=== PATIENT | female | born 2000 | race Caucasian/White ===

== ENCOUNTER 2019-07-30 04:00 | Inpatient (IN) ==
[2019-07-30] MEDS ORDERED: Naloxone 0.4 MG/ML INJ IVP PRN (04:20)
[2019-07-30] MEDS ORDERED: Famotidine 20 MG/2 ML VIAL IVP PRN (04:20)
[2019-07-30] MEDS ORDERED: Ondansetron 4 MG/2 ML VIAL IVP PRN (04:20)
[2019-07-30] MEDS ORDERED: *HR* Nalbuphine 10 MG/ML AMPUL IVP PRN (04:20)
[2019-07-30] MEDS ORDERED: Lidocaine 1% 20 ML MDV ID PRN (04:20)
[2019-07-30] MEDS ORDERED: Metoclopramide 10 MG/2 ML VIAL IVP PRN (04:20)
[2019-07-30] MEDS ORDERED: Penicillin G Potassium 5,000,000 UNIT in 0.9 % Sodium Chloride Mini Bag 100 ML IVPB ONE (04:27)
[2019-07-30] MEDS ORDERED: miSOPROStol 25 MCG TABLET VG PRN (04:27)
[2019-07-30] MEDS ORDERED: Ringers Solution, Lactated 1,000 ML IVC SCH (04:30)
[2019-07-30] MEDS ORDERED: FLU Vac QV 19-20 (6Month+)/PF 0.5 ML SYRINGE IM ONE (04:44)
[2019-07-30 04:52] LABS: Basophils % 0.4 %; Eosinophils # 0.2 K/mcL (0.0-0.6); Hematocrit 35.4 % (35.3-44.9); Hemoglobin 11.3 g/dL (11.5-15.4); Immature Granulocytes % 0.2 % (0-4); Lymphocytes # 2.4 K/mcL (0.6-4.6); Lymphocytes % 27.9 %; Mean Corpuscular HGB Conc 31.9 g/dL (31.6-35.5); Mean Corpuscular Hemoglobin 26.5 pg (28.0-33.3); Mean Corpuscular Volume 83.1 fL (83.0-100.0); Mean Platelet Volume 11.8 fL (9.4-12.4); Monocytes # 0.5 K/mcL (0.0-1.3); Neutrophils # 5.4 K/mcL (1.6-8.9); Platelet Count 320 K/mcL (140-400); Red Blood Count 4.26 M/mcL (3.82-4.97); Red Cell Distribution Width 15.9 % (11.5-14.5); Segmented Neutrophils % 63.5 %; White Blood Count 8.4 K/mcL (4.3-11.1)
[2019-07-30 05:00] LABS: Amphetamine Screen,Urine Negative ng/mL (Cutoff=1000); Barbiturate Screen,Urine Negative ng/mL (Cutoff=200); Benzodiazepines Screen,Urine Negative ng/mL (Cutoff=200); Cannabinoid Screen,Urine Negative ng/mL (Cutoff = 50); Cocaine Screen,Urine Negative ng/mL (Cutoff= 300); Opiate Screen,Urine Negative ng/mL (Cutoff=300); Phencyclidine Screen,Urine Negative ng/mL (Cutoff=25)
--- NOTE | 2019-07-30 08:37 | Anesthesia Evaluation PreOp ---
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: Denies Any Significant HX Other Medical History: GERD (occasional heartburn with ) Anesthesia History: No Prior Anesthetic Complications, Past Anesthesia : Yes (39+5, ) Alcohol Use: none Drug use: none Medications and Allergies Cetirizine HCl 10 mg PO DAILY PRN #30 tablet 02/05/18 [Rx] Ibuprofen [Motrin] 600 mg PO Q6-8H PRN #30 tab 02/05/18 [Rx] Lactobacillus Combo No.6 [Probiotic Complex] 1 each PO DAILY #20 tablet 02/05/18 [Rx] Ondansetron [Zofran ODT] 8 mg SL TID PRN #12 tab.rapdis 02/05/18 [Rx] Ondansetron ODT [Zofran ODT] 4 mg SL Q6HR #10 tab.rapdis 09/06/18 [Rx] Amoxicillin 875 mg PO BID #20 tablet 09/14/18 [Rx] Promethazine/Dextromethorphan [Promethazine-Dm Syrup] 5 - 10 ml PO QID PRN #120 syrup 09/14/18 [Rx] Sprintec 28 Day Tablet 09/14/18 [History] Allergy/AdvReac Type Severity Reaction Status Date / Time No Known Allergies Allergy Verified 09/14/18 12:06 Anesthesia Results - Labs 07/30/19 04:20 Anesthesia Exam O2 Sat Height 1.5 m Weight 114.759 kg Height: 59 Weight: 253 - HEENT Pupil (Motor): Pupils equal Mallampati: III Teeth: Normal Oral Opening: Greater than 3 - C[employer] HEL[employer] LOC: Oriented [employer] Motor: Normal RUE, Normal LUE, Normal RLE, Normal LLE, Normal Face [employer]ICE Sensory: Normal: RUE, LUE, RLE, LLE, Face - Cardiac Rhythm: Regular Murmur: None JVD: No Carotid Bruit: No - Pulmonary Breath Sounds: bilateral Clear Respiratory Effort: Symmetrical Anesthesia Assess/Plan ASA Score: 3 (morbid obesity) Level of consciousness: Cooperative Anesthetic Plan: Epidural Monitoring Plan: Standard Monitors
[2019-07-30] MEDS: Penicillin G Potassium 2,500,000 UNIT in 0.9 % Sodium Chloride 100 ML IVPB SCH ×3 (08:49→17:07)
[2019-07-30] MEDS ORDERED: EPHEDrine 50 MG/ML VIAL IVP PRN (08:51)
[2019-07-30] MEDS ORDERED: Epidural Premix (fent/bupiv) 110 ML EP SCH (09:00)
--- NOTE | 2019-07-30 09:23 | OB/GYN History & Physical ---
Date of Encounter: 07/30/19 Time of Encounter: 09:20 Assessment and Plan (1) 39 weeks gestation of Current visit: Yes Status: Acute 18-year-old at 39+5 weeks, Elective induction of labor, History of PTSD/suicide attempt 2016, O+/GBS positive Plan[place] [address] hours, Penicillin given for GBS prophylaxis, I'll reexamine patient in approximately 4 hours after her Cytotec dose, Anticipate History of Present Illness HPI: Ms. Ferguson is a 18 year old female at 39+5 weeks who presents to L&D for induction of labor. She does not report leaking of fluid, vaginal bleeding or contractions, feels good movement. history uncomplicated, patient has history of PTSD and a suicide attempt in 2016. GBS positive, blood type O+. Past Med Surg Social Fam HX - Past Medical History Medical history: no medical history Additional medical history: PCOS Psychiatric history: anxiety, depression, PTSD, prior suicide attempt, previous psychiatric hospitalization, other - Past Surgical History Surgical History: no surgical history - Social History Smoking Status: Current every day smoker Packs per day: 1 Smokeless Tobacco Status: No Alcohol use: none Drug use: none - Family History Mother Adopted: No Family Member Ethnicity: Non- Living Status: Still Living Hx Family Cardiac Disorders: No Hx Family Respiratory Disorders: Yes (Alpha 1) Hx Family Cancer: No Hx Family GI Disorders: No Hx Family Genitourinary Disorders: No Hx Family Endocrine Disorder: No Hx Family Musculoskeletal Disorders: No Hx Family Neuromuscular Disorders: No Hx Family Neurologic Disorders: No Hx Family HEENT Disorders: No Hx Family Autoimmune Disorders: No Hx Family Reproductive Disorders: No Hx Family Psychosocial Disorders: No Hx Family Medical Disorders: No Obstetrical History - Pregnancies : 1 Medications and Allergies Cetirizine HCl 10 mg PO DAILY PRN #30 tablet 02/05/18 [Rx] Ibuprofen [Motrin] 600 mg PO Q6-8H PRN #30 tab 02/05/18 [Rx] Lactobacillus Combo No.6 [Probiotic Complex] 1 each PO DAILY #20 tablet 02/05/18 [Rx] Ondansetron [Zofran ODT] 8 mg SL TID PRN #12 tab.rapdis 02/05/18 [Rx] Ondansetron ODT [Zofran ODT] 4 mg SL Q6HR #10 tab.rapdis 09/06/18 [Rx] Amoxicillin 875 mg PO BID #20 tablet 09/14/18 [Rx] Promethazine/Dextromethorphan [Promethazine-Dm Syrup] 5 - 10 ml PO QID PRN #120 syrup 09/14/18 [Rx] Sprintec 28 Day Tablet 09/14/18 [History] Allergy/AdvReac Type Severity Reaction Status Date / Time No Known Allergies Allergy Verified 09/14/18 12:06 Review of System OB All systems PM: reviewed and no additional remarkable complaints except as stated Exam - Constitutional Constitutional: no acute distress - HEENT HEENT: PERRL - Neck Neck exam: full ROM - Lungs Respiratory exam: CTAB - Cardiovascular Cardiovascular exam: RRR - Abdomen Abdomen: Present: gravid Results Result Diagrams: 07/30/19 04:20 Abnormal lab results Hgb 11.3 g/dL (11.5-15.4) L 07/30/19 04:20 MCH 26.5 pg (28.0-33.3) L 07/30/19 04:20 RDW 15.9 % (11.5-14.5) H 07/30/19 04:20 All other labs normal. - VTE Reasons for not Prescribing Prophylaxis: Treatment not Indicated - Low risk for VTE
--- NOTE | 2019-07-30 12:20 | OB Labor Progress Note ---
Date of Encounter: 07/30/19 Time of Encounter: 12:18 Labor Progress Note - Subjective Subjective: patient is doing well - Vital Signs Vital Signs: VSS, occasional mildly elevated pressures - Cervix Cervix: 3cm/80/-1 - Heart Tones Heart Tones: 125/mod charly/+accels, no decels - [place]: Q1-3 - Interventions Interventions: patient AROM'ed, IUPC and FSE placed, will start pitocin, anticipate
[2019-07-30 12:54] LABS: Alanine Aminotransferase 229 Units/L (7-52); Aspartate Amino Transferase 158 Units/L (13-39); BUN/Creatinine Ratio 14 (6-26); Blood Urea Nitrogen 10 mg/dL (6-20); Lactate Dehydrogenase 277 Units/L (140-271); Uric Acid 5.1 mg/dL (2.3-7.6); eGFR For African Americans > 60; eGFR For Non-African Americans > 60
[2019-07-30] MEDS ORDERED: Calcium Gluconate 1,000 MG/10 ML VIAL IVPB PRN (13:34)
[2019-07-30] MEDS ORDERED: Magnesium Sulfate 20 gm/500mL 20 GM/500 ML IV.SOLN IVC SCH (13:45)
[2019-07-30 13:58] LABS: Creatinine,Urine 354 mg/dL; Protein/Creatinine Ratio,Urine 0.17 mg/mg (0.00-0.20)
[2019-07-30] MEDS ORDERED: Oxytocin 20 units/ LR 1000 mL 20 UNIT/1,000 ML BAG IVC SCH (15:30)
--- NOTE | 2019-07-30 17:36 | OB Labor Progress Note ---
Date of Encounter: 07/30/19 Time of Encounter: 17:34 Labor Progress Note - Subjective Subjective: patient is doing well - Vital Signs Vital Signs: VSS - Cervix Cervix: 4-5cm/80%/-2 - Heart Tones Heart Tones: 120/mod charly/+accels, no decels - [place]: Q1-2 - Interventions Interventions: ok for epidural if she desires, anticipate
--- NOTE | 2019-07-30 21:35 | OB Labor Progress Note ---
Date of Encounter: 07/30/19 Time of Encounter: 21:31 Labor Progress Note - Subjective Subjective: patient is doing well, no reported symptoms of toxemia - Vital Signs Vital Signs: VSS - Cervix Cervix: 5-6cm/80%/-1 - Heart Tones Heart Tones: 120/mod charly/+accels, no decels - [place]: Q1-2 - Interventions Interventions: pitocin @ 10, anticipate , cont Mg for seizure ppx
[2019-07-30] MEDS ORDERED: *HR* FentaNYL (PF) 100 MCG/2 ML VIAL ONE (23:53)
[2019-07-30] MEDS ORDERED: Ropivacaine/PF 0.2% 20 ML VIAL ONE (23:53)
--- NOTE | 2019-07-31 00:47 | Anesthesia Procedures ---
Date of Encounter: 07/31/19 Time of Encounter: 23:57 (procedure end time 0024) Procedures: Anesthesia - Epidural/Spinal Patient ID/Chart reviewed: Yes Patient examined: Yes OB Eval: Contractions: Non-stressed pattern Consent Obtained: Yes Supplemental Oxygen: None/Room Air Site Prep: Aseptic Technique Patient position: upright Local Anesthetic: Lidocaine 1% Amount of Local Anesthetic used: 2 Touhy Needle Gauge: 18 Touhy Needle Depth (cm): 7 Catheter Depth at Skin (cm): 12 Test Dose (1.5% Lido + Epi): Volume given (mls): 3 Test Dose Result: Negative Loading Dose: Fentanyl (mcg): 100 Loading Dose: Other: 3ml 0.2% ropi Loading Dose Administered: Thru Touhy Needle Infusion Med: 0.125% Bupivacaine w/ 2 mcg/ml Fentanyl Infusion Rate (mls/hr): [address]: Tegaderm Interspace Used: L4-L5 Loss of Resistance (ROSANNE): Yes Blood: No CSF: No Paresthesia: No Procedure: Strict asepsis, good ROSANNE, no parasthesias, no heme, no CSF. FHR unchanged
--- NOTE | 2019-07-31 01:25 | OB Labor Progress Note ---
Date of Encounter: 07/31/19 Time of Encounter: 01:23 Labor Progress Note - Subjective Subjective: Patient is doing well - Vital Signs Vital Signs: VSS - Cervix Cervix: 7cm/100%/-1 - Heart Tones Heart Tones: 120/mod charly/+accels no decels - [place]: Q1-2 - Interventions Interventions: pitocin @10, anticipate
[2019-07-31] MEDS ORDERED: Ropivacaine/PF 0.2% 20 ML VIAL ONE (03:51)
--- NOTE | 2019-07-31 05:53 | OB Labor Progress Note ---
Date of Encounter: 07/31/19 Time of Encounter: 05:51 Labor Progress Note - Subjective Subjective: I went to evaluate the patient because of concerns of no urine output. The patient reports that she is dizzy and has some right upper quadrant abdominal pain. Her urine output dropped from 45-10-0. - Vital Signs Vital Signs: 120-150's/60-90's - Cervix Cervix: 8cm/100%/-1 - Heart Tones Heart Tones: 120/mod charly/+accels, no decels - [place]: Q1-2 - Interventions Interventions: 18-year-old at 39+6 weeks, Pre-eclampsia with severe features, morbid obesity Plan: Patient will be prepared for section because I am concerned her preeclampsia is worsening especially with right upper quadrant pain and no urine output. CMP and magnesium level sent. MgSO4 stopped at this time.
[2019-07-31] MEDS ORDERED: *HR* Oxytocin 10 UNIT/ML VIAL IM ONE ×2 (05:56→06:31)
[2019-07-31] MEDS ORDERED: Chloroprocaine/PF 20 ML VIAL INFILT ONE (05:56)
[2019-07-31] MEDS ORDERED: Ringers Solution, Lactated 1,000 ML ONE ×2 (05:58→06:20)
[2019-07-31] MEDS ORDERED: Azithromycin 500 MG in 0.9 % Sodium Chloride 250 ML IVPB ONE (06:05)
[2019-07-31] MEDS ORDERED: *HR* Morphine Sulfate/PF 10 MG/10 ML AMPUL ONE (06:29)
[2019-07-31 06:41] LABS: Alanine Aminotransferase 315 Units/L (7-52); Albumin 3.3 g/dL (3.5-5.7); Albumin/Globulin Ratio 0.9 (1.1-2.2); Alkaline Phosphatase 331 Units/L (34-104); Aspartate Amino Transferase 231 Units/L (13-39); BUN/Creatinine Ratio 8 (6-26); Bilirubin,Total 1.2 mg/dL (0.3-1.0); Blood Urea Nitrogen 9 mg/dL (6-20); Calcium 8.2 mg/dL (8.6-10.3); Carbon Dioxide 14 mEq/L (23-29); Chloride 98 mEq/L (98-107); Globulin 3.6 g/dL (2.4-3.5); Glucose 94 mg/dL (70-105); Magnesium > 8.0 mg/dL (1.6-2.6); Osmolality,Calculated 262 (280-300); Potassium 4.1 mEq/L (3.5-5.1); Sodium 127 mEq/L (136-145); Total Protein 6.9 g/dL (6.4-8.9); eGFR For African Americans > 60; eGFR For Non-African Americans > 60
[2019-07-31] MEDS ORDERED: Ketorolac 30 MG/ML VIAL IVP ONE (06:42)
[2019-07-31] MEDS ORDERED: *HR* HYDROmorphone (PF) 1 MG/ML SYRINGE IVP PRN (06:42)
[2019-07-31] MEDS ORDERED: Acetaminophen IV 1,000 MG/100 ML INFUS..BTL IVPB ONE (06:42)
[2019-07-31] MEDS ORDERED: Ondansetron 4 MG/2 ML VIAL ONE (06:55)
--- NOTE | 2019-07-31 07:50 | OB/GYN Procedure Note ---
Section - Date of procedure: 07/31/19 Preop diagnosis: other (Worsening of pre eclampsia with severe features) Post-op diagnosis: same Procedure: primary low transverse Surgeon: Lolita Paiz Quantitated Blood Loss: 600 Was there an practice assistant present: Yes Sand Conditioner: Korin Schaffer Anesthesiologist: Noam Johnson Cell Tender: Luciano Campbell Anesthesia Type: Epidural section complications: none Disposition: L&D Recovery Room Specimens: Placenta - (s) Infant A Infant Delivery Date: 07/31/19 Infant Delivery Time: : Presentation: vertex Gender: Male Gram Weight: 3.865 kg at 1 minute: 8 at 5 minutes: 9 Shoulder Dystocia: not encountered - Narrative Narrative: The patient was taken to the operating room where epidural anesthesia was found to be adequate. The patient was prepped and draped in the usual sterile fashion in the dorsal supine position with a left-mcdaniel tilt. We noted that her Patel had some blood in the urine before we started the procedure. A Pfannenstiel skin incision was made with the scalpel and carried through to the underlying layer of fascia using the Bovie. The fascia was incised in the midline and extended laterally using Corona scissors. Lucina clamps were used to elevate the superior aspect of the fascial incision, which was elevated, and the underlying rectus muscles were dissected off bluntly and using Corona scissors. Attention was then turned to the inferior aspect of the fascial incision, which in similar fashion was grasped with Lucina clamps, elevated, and the underlying rectus muscles were dissected off bluntly and using Corona scissors. The rectus muscles were dissected in the midline. The peritoneum was bluntly dissected, entered, and extended superiorly and inferiorly with good visualization of the bladder. The bladder blade was inserted. The vesicouterine peritoneum was identified with pickups and entered sharply using Metzenbaum scissors. This incision was extended laterally and the bladder flap was created digitally. The bladder blade was reinserted. The lower uterine segment was incised in a transverse fashion using the scalpel and extended using manual traction. Clear fluid was noted. The infant was subsequently delivered atraumatically though the infant was asynclitic. The nose and mouth were bulb suctioned. The cord was clamped and cut. The was subsequently handed to the awaiting nursery nurse. The uterus was exteriorized and cleared of all clots and debris. The uterine incision was repaired in 2 layers using 0 vicryl suture. Hemostasis was visualized. The uterus was returned to the abdomen. I inspected the bladder to make sure that there were no injuri es because we noted that prior to the , the patient had no urine output. After delivering the , we had about 150 urine output almost instantly. It was bloody. The bladder was noted to be intact The uterine incision was reexamined and was noted to be hemostatic. The fascia was closed with 0 Vicryl, the subcutaneous layer was closed with 3-0 vicryl, and the skin was closed with 4-0 vicryl. Sponge, lap, and instrument counts were correct x2. The patient was stable at the completion of the procedure and was subsequently transferred to the recovery room in stable condition.
[2019-07-31] MEDS ORDERED: Simethicone 80 MG TAB.CHEW PO PRN (08:05)
[2019-07-31] MEDS ORDERED: Loratadine 10 MG TABLET PO PRN (08:05)
[2019-07-31] MEDS ORDERED: Ondansetron 4 MG/2 ML VIAL IVP PRN (08:05)
[2019-07-31] MEDS ORDERED: Metoclopramide 10 MG/2 ML VIAL IVP PRN (08:05)
[2019-07-31] MEDS ORDERED: Sennosides 8.6 MG TABLET PO PRN (08:05)
[2019-07-31] MEDS ORDERED: Oxytocin 20 units/ LR 1000 mL 20 UNIT/1,000 ML BAG IVC SCH ×2 (08:05→09:35)
[2019-07-31] MEDS ORDERED: Rho Immune Globulin 1,500 UNIT SYRINGE IM ONE (08:05)
--- NOTE | 2019-07-31 11:33 | Anesthesia Evaluation Post Op ---
Date of Encounter: 07/31/19 Time of Encounter: 11:30 - Vital Signs Vital Signs: Vital Signs Respiratory Rate 16 07/31/19 09:55 Temperature 97.4 F L 07/31/19 10:30 Pulse Rate 86 07/31/19 10:30 Respiratory Rate 16 07/31/19 10:30 Blood Pressure 129/71 07/31/19 10:30 O2 Sat by Pulse Oximetry 95 07/31/19 10:30 - Lungs Lungs: Clear Ascult./Percussion - Airway Airway: Non-obstructed - Cardiovascular Regular Rate - Mental Status Mental Status: Alert & Oriented, Answers Appropriately - Pain Pain Scale: 4 Pain Scale used: Numeric (1 - 10) - Nausea Vomiting Nausea Vomiting: Not Present - Hydration Hydration: NPO, Patel catheter - Discharge PostOp Status: Transfer Patient to floor
[2019-07-31] MEDS ORDERED: 0.9 % Sodium Chloride 1,000 ML IVC SCH (11:45)
[2019-07-31] MEDS: *HR* OxyCODONE/APAP 5/325 TABLET PO PRN (15:03)
[2019-07-31 17:33] LABS: Basophils % 0.1 %; Eosinophils % 0.1 %; Hematocrit 24.1 % (35.3-44.9); Immature Granulocytes % 0.4 % (0-4); Lymphocytes # 2.4 K/mcL (0.6-4.6); Lymphocytes % 15.5 %; Mean Corpuscular HGB Conc 32.4 g/dL (31.6-35.5); Mean Corpuscular Hemoglobin 26.8 pg (28.0-33.3); Mean Corpuscular Volume 82.8 fL (83.0-100.0); Mean Platelet Volume 11.4 fL (9.4-12.4); Monocytes % 6.1 %; Neutrophils # 12.2 K/mcL (1.6-8.9); Platelet Count 286 K/mcL (140-400); Red Blood Count 2.91 M/mcL (3.82-4.97); Red Cell Distribution Width 15.9 % (11.5-14.5); Segmented Neutrophils % 77.8 %; White Blood Count 15.7 K/mcL (4.3-11.1)
[2019-07-31 17:35] LABS: Hemoglobin 7.8 g/dL (11.5-15.4)
[2019-07-31] MEDS: Ibuprofen 600 MG TABLET PO PRN (17:36)
[2019-07-31 17:54] LABS: Alanine Aminotransferase 148 Units/L (7-52); Aspartate Amino Transferase 82 Units/L (13-39); BUN/Creatinine Ratio 9 (6-26); Blood Urea Nitrogen 11 mg/dL (6-20); Lactate Dehydrogenase 246 Units/L (140-271); Uric Acid 6.4 mg/dL (2.3-7.6); eGFR For African Americans > 60; eGFR For Non-African Americans 58
[2019-08-01] MEDS: Ibuprofen 600 MG TABLET PO PRN ×3 (01:40→18:47)
[2019-08-01 07:02] LABS: Basophils % 0.1 %; Eosinophils # 0.1 K/mcL (0.0-0.6); Eosinophils % 0.7 %; Hematocrit 22.1 % (35.3-44.9); Hemoglobin 6.9 g/dL (11.5-15.4); Immature Granulocytes % 0.4 % (0-4); Lymphocytes # 2.2 K/mcL (0.6-4.6); Lymphocytes % 19.8 %; Mean Corpuscular HGB Conc 31.2 g/dL (31.6-35.5); Mean Corpuscular Hemoglobin 26.7 pg (28.0-33.3); Mean Corpuscular Volume 85.7 fL (83.0-100.0); Mean Platelet Volume 11.6 fL (9.4-12.4); Monocytes # 0.8 K/mcL (0.0-1.3); Monocytes % 7.5 %; Platelet Count 232 K/mcL (140-400); Red Blood Count 2.58 M/mcL (3.82-4.97); Red Cell Distribution Width 16.2 % (11.5-14.5); Segmented Neutrophils % 71.5 %; White Blood Count 11.2 K/mcL (4.3-11.1)
--- NOTE | 2019-08-01 08:21 | OB/GYN Progress Note ---
Date of Encounter: 08/01/19 Time of Encounter: 08: - Assessment and Plan (1) 39 weeks gestation of Current Visit: Yes Status: Acute 18-year-old s/p PC/S for pre eclampsia with severe features, Elevated transaminases, Acute blood loss anemia History of PTSD/suicide attempt 2017, Plan: will give 2 units of blood, patient making good urine, she's had quite a bit of lochia pain is under control, cont current inpatient care Subjective - Subjective Patient reports: appetite normal, voiding normally, pain well controlled, ambulating normally Objective - Vital Signs Latest vital signs: Vital Signs Temp Pulse Pulse Resp BP Pulse Ox 08/01/19 08:12 98.3 F 110 14 130/88 99 08/01/19 08:00 97.8 F 114 14 125/74 96 08/01/19 01:25 97.8 F 88 16 108/55 97 07/31/19 19:50 98.2 F 104 18 102/55 94 07/31/19 12:55 97.9 F 90 90 16 127/78 97 07/31/19 11:55 97.5 F L 87 87 16 121/65 94 07/31/19 11:00 97.3 F L 82 82 16 125/67 95 07/31/19 10:30 97.4 F L 86 86 16 129/71 95 07/31/19 09:55 16 Intake and Output 07/31/19 08/01/19 08/01/19 23:59 07:59 15:59 Output Total 200 / 725 1250 / 1250 Balance -200 / 2075 -1250 / -1250 Output: Catheter 200 / 725 1250 / 1250 - Exam Lungs: bilateral: normal Chest: Normal S1, Normal S2 Extremities: Present: normal Abdomen: Present: soft Incision: Present: dressed - Labs Labs: Laboratory Results - last 24 hr 07/31/19 07/31/19 08/01/19 17:20 17:20 06:28 WBC 15.7 H D 11.2 H RBC 2.91 L 2.58 L Hgb 7.8 L D 6.9 L Hct 24.1 L 22.1 L MCV 82.8 L 85.7 MCH 26.8 L 26.7 L MCHC 32.4 31.2 L RDW 15.9 H 16.2 H Plt Count 286 232 MPV 11.4 11.6 Immature Gran % 0.4 0.4 Seg Neutrophils % 77.8 71.5 Lymphocytes % 15.5 19.8 Monocytes % 6.1 7.5 Eosinophils % 0.1 0.7 Basophils % 0.1 0.1 Neutrophils # 12.2 H 8.0 Lymphocytes # 2.4 2.2 Monocytes # 1.0 0.8 Eosinophils # 0.0 0.1 Basophils # 0.0 0.0 BUN 11 Creatinine 1.20 Est GFR ( Amer) > 60 Est GFR (Non-Af Amer) 58 BUN/Creatinine Ratio 9 Uric Acid 6.4 AST 82 H ALT 148 H Lactate Dehydrogenase 246
[2019-08-01] MEDS: Prenatal Vit/FA 1 EACH TABLET PO SCH (08:44)
[2019-08-01] MEDS ORDERED: 0.9 % Sodium Chloride 250 ML IVC SCH (08:45)
[2019-08-01] MEDS ORDERED: 0.9 % Sodium Chloride 250 ML ONE ×2 (11:44→15:25)
[2019-08-01] MEDS: *HR* OxyCODONE/APAP 5/325 TABLET PO PRN (13:01)
[2019-08-02 00:13] LABS: Basophils % 0.2 %; Eosinophils # 0.1 K/mcL (0.0-0.6); Eosinophils % 0.9 %; Hematocrit 29.6 % (35.3-44.9); Immature Granulocytes % 0.9 % (0-4); Lymphocytes # 2.8 K/mcL (0.6-4.6); Lymphocytes % 21.7 %; Mean Corpuscular HGB Conc 32.1 g/dL (31.6-35.5); Mean Corpuscular Hemoglobin 26.9 pg (28.0-33.3); Mean Corpuscular Volume 83.9 fL (83.0-100.0); Mean Platelet Volume 11.7 fL (9.4-12.4); Monocytes # 0.7 K/mcL (0.0-1.3); Monocytes % 5.5 %; Neutrophils # 9.1 K/mcL (1.6-8.9); Platelet Count 291 K/mcL (140-400); Red Blood Count 3.53 M/mcL (3.82-4.97); Red Cell Distribution Width 16.3 % (11.5-14.5); Segmented Neutrophils % 70.8 %; White Blood Count 12.9 K/mcL (4.3-11.1)
[2019-08-02 00:14] LABS: Hemoglobin 9.5 g/dL (11.5-15.4)
[2019-08-02 07:18] LABS: Alanine Aminotransferase 65 Units/L (7-52); Albumin 2.4 g/dL (3.5-5.7); Albumin/Globulin Ratio 0.9 (1.1-2.2); Alkaline Phosphatase 179 Units/L (34-104); Aspartate Amino Transferase 25 Units/L (13-39); BUN/Creatinine Ratio 17 (6-26); Bilirubin,Total 0.4 mg/dL (0.3-1.0); Blood Urea Nitrogen 12 mg/dL (6-20); Calcium 8.1 mg/dL (8.6-10.3); Carbon Dioxide 24 mEq/L (23-29); Chloride 107 mEq/L (98-107); Globulin 2.7 g/dL (2.4-3.5); Glucose 88 mg/dL (70-105); Osmolality,Calculated 289 (280-300); Potassium 3.9 mEq/L (3.5-5.1); Sodium 140 mEq/L (136-145); Total Protein 5.1 g/dL (6.4-8.9); eGFR For African Americans > 60; eGFR For Non-African Americans > 60
[2019-08-02 08:46] VITALS: BP 135/82
[2019-08-02] MEDS: *HR* OxyCODONE/APAP 5/325 TABLET PO PRN (09:46)
[2019-08-02] MEDS: Prenatal Vit/FA 1 EACH TABLET PO SCH (09:47)
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
[2019-08-02] MEDS ORDERED: FLU Vac QV 19-20 (6Month+)/PF 0.5 ML SYRINGE IM ONE (13:30)
== END 2019-08-02 15:20 | disposition home or self-care (01) | DRG 540 ==
LOC: 1NENULAB 04:17 → 1NENUOBS 07-31 08:04
PROVIDERS: ADMIT Student in an Organized Health Care Education/Training Program; ATTEND Student in an Organized Health Care Education/Training Program